=== PATIENT | female | born 1985 | race Caucasian/White ===

== ENCOUNTER 2020-06-28 09:50 | Emergency (ER) | payer SELFPAY ==
--- NOTE | 2020-06-28 11:02 | ED.PDOC ---
History of Present Illness - General Chief Complaint: Respiratory Problem Stated Complaint: body aches, cough Time Seen by Provider: 06/28/20 09:55 Source: patient Exam Limitations: no limitations - History of Present Illness Initial Comments: The patient is a 34-year-old female presented emergency room secondary to symptoms of headache and some body aches a very mild runny nose for the last 2 to 3 days. 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 No shortness of breath. No chest pain. No altered mental status. No nuchal rigidity or meningeal signs. No definite fever. The patient reports a mild decrease in taste over the last 24 hours however upon testing with different scents, the sense of smell does appear to be intact at this point. Timing/Duration: other Severity: mild Improving Factors: nothing Worsening Factors: nothing Associated Symptoms: headaches, malaise Allergies/Adverse Reactions: Allergies NO KNOWN ALLERGY Allergy (Verified 06/28/20 10:12) Review of Systems - Review of Systems Constitutional: States: malaise EENTM: States: nose congestion Respiratory: States: no symptoms reported Cardiology: States: no symptoms reported Gastrointestinal/Abdominal: States: no symptoms reported Genitourinary: States: no symptoms reported Musculoskeletal: States: no symptoms reported Skin: States: no symptoms reported Neurological: States: headache Endocrine: States: no symptoms reported All other Systems: No Change from Baseline Past Medical History (General) - Patient Medical History Hx Asthma: No Hx Cardiac Disorders: No Hx Diabetes: No Hx Gastroesophageal Reflux: No Surgical History: other - Social History Hx Tobacco Use: Yes Family Medical History - Family History Mother Family History: Unknown Physical Exam - Physical Exam General Appearance: Alert, Comfortable, No apparent distress Eye Exam: bilateral normal Ears, Nose, Throat: hearing grossly normal, nasal congestion Neck: full range of motion, supple Respiratory: lungs clear, normal breath sounds, no respiratory distress, no accessory muscle use Cardiovascular/Chest: normal peripheral pulses, regular rate, rhythm, no edema Peripheral Pulses: radial,right: 2+, radial,left: 2+ Rectal Exam: deferred Extremity: normal range of motion, normal capillary refill 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 She has tested negative for coronavirus on the rapid test here as well as negative for strep throat. There are multiple other viral pathologies going around currently. The patient does need to avoid returning to work until she is at least 2 days post symptoms. 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 The patient has agreed to this. The patient is aware that it is a possibility that the facility that she works at may require another negative coronavirus test prior to resuming work, after her symptoms have resolved. She needs to keep her self well-hydrated. 2 Aleve twice daily can also help with body aches and headaches. ER warnings are given. amanda mckenna [id number] - Results/Orders Results/Orders: Rapid strep and rapid coronavirus testing are negative. Departure - Departure Clinical Impression: Viral upper respiratory tract infection Disposition: Discharge to Home or Self Care Condition: Fair Departure Forms: ED Discharge - Pt. Copy, Patient Portal Self Enrollment Instructions: Viral Upper Respiratory Infection, Adult (DC) Diet: regular diet Activity: increase activity as tolerated Additional Instructions: The patient is a 34-year-old female presented emergency room secondary to concern for the possibility of having coronavirus. She has tested negative for coronavirus on the rapid test here as well as negative for strep throat. There are multiple other viral pathologies going around currently. The patient does need to avoid returning to work until she is at least 2 days post symptoms. 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 The patient has agreed to this. The patient is aware that it is a possibility that the facility that she works at may require another negative coronavirus test prior to resuming work, after her symptoms have resolved. She needs to keep her self well-hydrated. 2 Aleve twice daily can also help with body aches and headaches. ER warnings are given.
[2020-06-28 11:24] VITALS: BP 112/76; TEMP 97.8; O2SAT 98
== END 2020-06-28 11:24 | disposition home or self-care (01) ==
LOC: ER 09:50
DX: J06.9 Acute upper respiratory infection, unspecified (principal); Z20.828 Contact with and (suspected) exposure to other viral communicable diseases; Z87.891 Personal history of nicotine dependence